=== PATIENT | female | born 1950 | race Caucasian/White ===

== ENCOUNTER 2019-11-04 10:04 | Outpatient (RCR) | payer MEDICARE, OTHER, SELFPAY ==
--- NOTE | 2019-11-04 11:08 | PTOPEVAL ---
Thank you for referring this patient to [facility]. Please review, sign, date and return this plan of care [facility]. I agree with and certify that the following plan of care is medically necessary. Referring Physician Date Admitting Provider: Attending Provider: Prashanth Soria MD Referring Provider: *PT Outpatient Evaluation Start: 11/04/19 10:13 Freq: Status: Active Protocol: Document 11/04/19 10:13 MICHELLE (Rec: 11/04/19 10:51 Jada [id number]) Therapy Assessment Status Assessment Status Assessment Status Evaluation Evaluation Information Problem Diagnosis L rotator cuff tendonitis Onset 10/27/19 Additional Evaluation Detail quick dash = Subjective Information patient reports she has been Query Text:As Reported By Patient/ having pain in the L shoulder Family for about 1 year. she reports she was hear in the middle of last year with issues with her R shoulder. she reports no injury to the L shoulder, but reports she is left handed. she reports she now feels like she favors the R arm due to increased strength and less pain in the R arm. she reports she has increased pain with reaching overhead, lifting dishes into cabinets, and different positions of the shoudler. Diagnostic Tests X-Rays For This Problem Yes Prior Level of Function Comments Additional Prior Level of Function patient reports gradual Comments increased pain in the L shoulder over the past year. she reports she would like to get back to all daily cleaning , self care, hygeine, and functional use of the L UE. Pain Assessment Timing of Pain Assessment Timing of Pain Assessment Assessment Pain Scale Pain Scale Used Numeric (1 - 10) Self Report Pain Assessment Left Shoulder(s) Reported Pain Level 1 Pain Description Sharp Pain Frequency Chronic,Continuous Current Pain Intensity 1 Lowest Pain Intensity 1 Greatest Pain Intensity 5 Pain Aggravating Factors Changing Position,Lifting Pain Relief Interventions Used By Position Change Patient Other Alleviating Interventions patient had injection to the L
== END 2019-12-07 08:52 | disposition home or self-care (01) ==
LOC: CHSPT 10:04
PROVIDERS: Visit Provider Orthopaedic Surgery
DX: M75.92 Shoulder lesion, unspecified, left shoulder (principal)
CPT/HCPCS: 97014; 97110; 97161; G0283

== ENCOUNTER 2019-12-29 11:06 | Outpatient (CLI) | payer MEDICARE, OTHER, SELFPAY ==
--- NOTE | ~2019-12-29 | MR_ITS ---
EXAMINATION: MR shoulder LT wo con DATE: 12/29/2019 12:10 INDICATION: Left shoulder pain. TECHNIQUE: Magnetic resonance imaging (MRI) of the left shoulder was performed without intravenous co ntrast. Sequences included axial PD-weighted FS FSE, coronal oblique PD-weighted FS FSE and T2-weight ed FS FSE, and sagittal oblique T2-weighted FS FSE and T1-weighted FSE. COMPARISON: Left shoulder radiographs 10/27/2019 FINDINGS: Coracoacromial arch: The acromion undersurface is curved in morphology (type II). There is severe acromioclavicular joint osteoarthritis. There is moderate subacromial/subdeltoid bursitis. Rotator cuff: There is a full-thickness tear of anterior supraspinatus tendon measuring 12 mm anterior to posterior by 3.5 cm proximal to distal. There is severe infraspinatus tendinopathy with small interstitial tea r. Teres minor tendon is normal. There is severe tendinopathy of subscapularis tendon with articular sided partial-thickness tear. There is no asymmetric fatty atrophy of the rotator cuff muscle bellies . Biceps tendon and glenoid labrum: There is a complete tear of proximal biceps tendon. There is a degenerative tear of superior glenoid labrum at 12:00 (SLAP tear). Fluid: There is a moderate-sized glenohumeral joint effusion. Bones/cartilage: Humeral head cartilage is normal. Glenoid cartilage is normal. IMPRESSION: 1. Severe rotator cuff tendinopathy with full-thickness rotator cuff tear. 2. Complete tear of proximal biceps tendon. 3. Severe acromioclavicular joint osteoarthritis. 4. Moderate-sized glenohumeral joint effusion and moderate subacromial/subdeltoid bursitis. 5. SLAP tear. Reviewed, dictated and finalized at location A. IMPRESSION: 1. Severe rotator cuff tendinopathy with full-thickness rotator cuff tear. 2. Complete tear of proximal biceps tendon. 3. Severe acromioclavicular joint osteoarthritis. 4. Moderate-sized glenohumeral joint effusion and moderate subacromial/subdelto id bursitis. 5. SLAP tear.
== END 2019-12-29 11:07 | disposition home or self-care (01) ==
LOC: ANHIMG 11:11
PROVIDERS: Visit Provider Orthopaedic Surgery
DX: M19.012 Primary osteoarthritis, left shoulder (principal); M25.412 Effusion, left shoulder; S43.432A Superior glenoid labrum lesion of left shoulder, initial encounter; X58.XXXA Exposure to other specified factors, initial encounter
CPT/HCPCS: 73221

== ENCOUNTER 2020-09-11 09:35 | Outpatient (CLI) | payer MEDICARE, OTHER, SELFPAY ==
--- NOTE | 2020-09-11 09:36 | ECG_ITS ---
Measurements Intervals [place] Rate: 61 P: 39 AR: 189 QRS: 6 QRSD: 87 T: 30 QT: 390 QTc: 394 Interpretive Statements SINUS RHYTHM BORDERLINE R WAVE PROGRESSION, ANTERIOR LEADS BASELINE ARTIFACT- I, II, III, AVR, AVL, AVF BORDERLINE ECG Electronically Signed On 09-11-2020 10:24:33 [employer] by David Clay D.O.
[2020-09-11 10:06] LABS: Anion Gap 5 mmol/L (8-16); Blood Urea Nitrogen 19 mg/dL (7-17); Calcium 9.3 mg/dL (8.4-10.2); Carbon Dioxide 32 mmol/L (22-30); Chloride 102 mmol/L (98-107); Estimated Glomerular Filt Rate > 60; Glucose 93 mg/dL (65-105); Potassium 4.4 mmol/L (3.4-5.0); Sodium 139 mmol/L (137-145)
== END 2020-09-11 09:36 | disposition home or self-care (01) ==
LOC: ANHSURGERY 09:36
PROVIDERS: Anesthesiology; Visit Provider Orthopaedic Surgery
DX: Z01.818 Encounter for other preprocedural examination (principal); M75.102 Unspecified rotator cuff tear or rupture of left shoulder, not specified as traumatic; E11.9 Type 2 diabetes mellitus without complications; I10 Essential (primary) hypertension
CPT/HCPCS: 36415; 80048; 93005

== ENCOUNTER 2020-09-15 00:37 | Outpatient (CLI) | payer MEDICARE, OTHER, SELFPAY ==
[2020-09-15 21:25] LABS: SARS-CoV-2 RNA PCR Negative
== END 2020-09-15 00:38 | disposition home or self-care (01) ==
LOC: ANHCOVIDDT 00:38
PROVIDERS: Visit Provider Orthopaedic Surgery
DX: Z01.818 Encounter for other preprocedural examination (principal); Z20.828 Contact with and (suspected) exposure to other viral communicable diseases
CPT/HCPCS: 87635; C9803; U0003

== ENCOUNTER 2020-09-18 00:49 | Day surgery (SDC) | payer MEDICARE, OTHER, SELFPAY ==
[2020-09-04 12:46] VITALS: BMI 29.2
[2020-09-18] VITALS (8 sets, daily range): BP systolic 123–150; BP diastolic 62–85; PULSE 66–82; RESP 10–20; TEMP 36.4; O2SAT 92–99
[2020-09-18] MEDS: ACETAMINOPHEN 500 MG TABLET 1000 MG PO (10:25)
--- NOTE | 2020-09-18 10:55 | WPDANESEPPF ---
Anes - Initial Pre Proc Eval Procedure: Operation Date: 09/18/20 12:00 Proposed Procedures p Left Rotator Cuff Repair, Acromioplasty, Distal Clavicle Excision - Prashanth Soria MD Date/Time: 09/18/20 10:55 Surgeon: Prashanth Soria MD Pre Op Diagnosis: left rotator cuff tear, AC arthritis Patient Data Age: 69 Gender: F Height: 5 ft 6 in Weight: 82.46 kg Last Vital Signs Temp 36.4 C 09/18/20 10:24 Pulse 66 09/18/20 10:24 Resp 20 09/18/20 10:24 BP 123/62 09/18/20 10:24 Pulse Ox 98 09/18/20 10:24 Allergies Allergy/AdvReac Type Severity Reaction Status Date / Time BEE STINGS Allergy Severe ANAPHYLAXIS Uncoded 09/18/20 10:26 Home Medications Medication Instructions Recorded Confirmed Type bupropion HCl 200 mg tablet,12 hr 200 mg PO BID 10/27/19 09/18/20 History sustained-release calcium carbonate 600 mg calcium 600 mg PO DAILY 10/27/19 09/18/20 History (1,500 mg) tablet citalopram 20 mg tablet 10 mg PO QAM 10/27/19 09/18/20 History fexofenadine 60 mg tablet 60 mg PO Q12H PRN 10/27/19 09/18/20 History fluticasone propionate 50 1 spray NASAL DAILY PRN 10/27/19 09/18/20 History mcg/actuation nasal spray,suspension lisinopril 10 mg tablet 10 mg PO QAM 10/27/19 09/18/20 History metformin 500 mg tablet 500 mg PO HS tablet 10/27/19 09/18/20 History atorvastatin 5 mg PO QAM 09/04/20 09/18/20 History jrmuwdoiezxd-Ca-iish-minerals 1 tablet PO DAILY 09/04/20 09/18/20 History [Multiple Vitamin, Womens] triamcinolone acetonide 1 applic TOPICAL TID PRN 09/04/20 09/18/20 History Patient hx anesthesia problems: other (slow to awaken) Family hx anesthesia problems: none PMFSH Past Medical History Medical History BMI 31.0-31.9,adult Diabetes Hyperlipidemia Hypertension Restless leg syndrome Surgical History Surgical History History of cataract surgery 2020 History of partial knee replacement (~2014) bilateral S/P right rotator cuff repair Social History Social History Smoking status: Never smoker Alcohol intake: current Substance use: never Living arrangements: with family Additional living arrangements comments: [place] Gender identity (if verbalized by the patient): Female Spiritual care concerns: No Anes - Eval Final PreProcedure Day of Procedure 09/18/20 10:55 Patient weight: overweight Heart: regular rate and rhythm Lungs: clear to auscultation Airway: Mallampati scale class II Neurological: alert and oriented Last oral intake: >/= 8 hours ASA classification: III Emergent: no Anesthetic plan: proceed Anesthesia type and monitoring: general ETT and standard monitoring Informed Consent: The patient's anesthetic plan and its attendant risks and benefits were discussed with the patient/family/POA. Questions were solicited and answers provided to the satisfaction of the patient/family/POA.
[2020-09-18] MEDS: LACTATED RINGERS 1,000 ML 30 ML IV CONT ×2 (11:00→12:58)
[2020-09-18] MEDS: KETOROLAC 15 MG/ML VIAL (*BKC) IV PUSH (11:07)
[2020-09-18 11:13] LABS: Glucose Point of Care 84 (65-105)
--- NOTE | 2020-09-18 11:13 | WPDHPUPDATE1 ---
History and Physical Update Update Date/Time: 09/18/20 11:13 History and Physical has been reviewed, including an updated exam of the patient. There are NO changes in the patient's condition. Risks, benefits, and alternatives have been discussed and questions answered. Patient agrees to proceed with procedure.
[2020-09-18] MEDS: ceFAZolin 2 GM/D5W 50 ML 2 GM/50 ML BAG IVPB (11:32)
--- NOTE | 2020-09-18 11:32 | WPDANESPNB ---
Anes - Peripheral Nerve Block Date/Time: 09/18/20 11:32 I have discussed with the patient/family/POA the placement of a peripheral nerve block for post-operative pain management, including associated risks, benefits, complications, and side effects. Alternative methods of post-operative analgesia were detailed. Questions were solicited and answers provided to the satisfaction of the patient/family/POA. Time-Out: A pre-procedural Time-Out was completed immediately before starting the procedure and confirmed: Patient Identification, Site, Procedure, Patient Position and the Availability of Requisite Equipment. Clinical Indications: Acute post-operative pain management requested by the operative surgeon. Nerve Block Insertion Note Anes-nerve block: interscalene left Patient position: other (sitting) Skin prep: chlorhexidine Needle: 22 gauge, stimulating, insulated echogenic needle. Needle length: 50 mm Technique: nerve stimulation lost at (mA) (0.3) Technique comment: mid 2mg fent 100mcg Injectate: bupivacaine 0.5% with epi 5 mcg/ml (30ml no epi) and dexamethasone (mg) (4) Procedure start time:: 112 Procedure end time:: 1127
--- NOTE | 2020-09-18 12:55 | PM.PROC ---
Procedure Note - Detailed Date of procedure: 09/18/20 Pre-op diagnosis: left rotator cuff tear, AC arthritis Post-op diagnosis: same Procedure performed: Left shoulder open anterior acromioplasty, distal clavicle excision and repair the rotator cuff Description of procedure: Patient was identified and proper site identified. In the preop holding area the anesthesia team performed a left upper extremity block. She was then taken to the operating room and transferred to the or table taking care to pad the torso and extremities. After general anesthetic induction and intubation, she was put in a semi beach chair position in the usual manner for a left shoulder procedure. Her head was secured taking care to neither rotate nor extend the head and neck. The left upper extremity was prepped and draped free in usual sterile fashion. The subcutaneous tissue in the area of the incision was injected with 10 cc of 0.25% Marcaine and epinephrine solution. An oblique anterior incision was made extending from the AC joint distally in line with the fibers of the deltoid. Subcutaneous tissue was sharply dissected down to the deltoid fascia. The deltoid was dissected off the anterior portion of the acromion in the distal end of the clavicle. A 2 cm split was made at the junction between the anterior and middle thirds of the deltoid. Using the microsagittal saw the last 8 mm of clavicle removed. The saw was also used to perform the acromioplasty and then the undersurface of the acromion was rasped smooth. Adherent bursa was dissected off the rotator cuff. The supraspinatus was avulsed off of the anterior portion of the greater tuberosity and retracted. There is also some delamination of the infraspinatus tendon. Biceps tendon was not in the bicipital groove. Subscapularis attachment was inspected noted be intact as was the teres minor. The greater tuberosity was prepared for the repair and the supraspinatus was repaired back down to the greater tuberosity with 2. Ethibond suture Passer bone and also 2. Ethibond was used in a [id number] fashion. This gave a pierce repair which was stable as the shoulder was taken through range of motion. The wound was irrigated with sterile NaCl solution. The deltoid was repaired back to the acromion with 2. Ethibond suture passed through bone and the remainder of the deltoid repair carried out with 2. Vicryl. Subcutaneous tissue was reapproximated with 2. Strata fix and then tissue adhesive used for the skin. Sterile dressing was applied. There were no known intraoperative complications, and perioperative antibiotics were administered. Anesthesia: GETA Surgeon: Prashanth Soria MD Estimated blood loss (mL): 30 Drains: No Packing: No Pathology: none sent Complications: No immediate complications Condition: stable Disposition: PACU
== END 2020-09-18 14:50 | disposition home or self-care (01) ==
PROVIDERS: Visit Provider Orthopaedic Surgery
PROC: (CPT 23420; principal; 2020-09-18 12:00)
DX: M75.102 Unspecified rotator cuff tear or rupture of left shoulder, not specified as traumatic (principal); M19.012 Primary osteoarthritis, left shoulder; G89.18 Other acute postprocedural pain; I10 Essential (primary) hypertension; E78.5 Hyperlipidemia, unspecified; E11.9 Type 2 diabetes mellitus without complications; G25.81 Restless legs syndrome; Z79.84 Long term (current) use of oral hypoglycemic drugs
CPT/HCPCS: 23420; 23120; 64415; A4565; A9270; J0690; J1100; J1885; J2250; J2405; J2704; J3010; J7120

== ENCOUNTER 2020-09-20 11:11 | Outpatient (RCR) | payer MEDICARE, OTHER, SELFPAY ==
--- NOTE | 2020-09-27 21:06 | PTOPEVAL ---
Thank you for referring Neftali Bee to [facility].? The patient is scheduled to be seen for therapy? ____x/week for ___ weeks. Please review, sign, date and return this plan of care SHAMEKA. I agree with and certify that the following plan of care is medically necessary. Referring Physician Date Admitting Provider: Attending Provider: Prashanth Soria MD Referring Provider: *PT Outpatient Evaluation Start: 09/20/20 11:14 Freq: Status: Active Protocol: Document 09/20/20 11:00 Jada (Rec: 09/27/20 21:05 [facility] [id number]) Therapy Assessment Status Assessment Status Assessment Status Evaluation Outpatient Past Medical History Neurological History Hx Other Neurological Disorders Yes: MILD RESTLESS LEG SYNDROME Cardiovascular History Hx Hypercholesterolemia Yes Hx Hypertension Yes Respiratory History Hx Respiratory Disorders No Significant History Gastrointestinal History Hx Gastrointestinal Disorders No Significant History Genitourinary History Hx Genitourinary Disorders No Significant History Musculoskeletal History Hx Arthritis Yes Hx Back Pain Yes: SCIATICA- RT LEG PAIN. INJECTED 2018 Hx Joint Replacement Yes: PARTIAL KNEE REPLACEMENTS -MARCH AND JUL 2015 Hx Other Musculoskeletal Disorders Yes: LT ROTATOR CUFF TEAR , AC ARTHRITIS. Hematological History Hx Hematological Disorders No Significant History Endocrine History Hx Diabetes Yes HEENT History Hx Cataracts Yes: BILAT IMPLANTS Integumentary History Hx Shingles Yes: ~2007 Reproductive History Hx Post Menopausal Yes Psychosocial History Hx Depression Yes Pain History History of Any Previous or Ongoing No Significant History Instance of Pain Anesthesia History Hx Anesthesia Reactions No Significant History Other History Hx Implanted Device Yes: BILAT KNEES Evaluation Information Problem Diagnosis s/p L RTC repair Onset 09/18/20 Additional Evaluation Detail quick dash = 81% functionally declined Subjective Information patient reports due to pain, Query Text:As Reported By Patient/ weakness, and other functional Family deficits with the L shoulder, she had a L RTC repair on . she reports she was supposed to have a small arthroscopic repair. however, upon entering surgery, her surgeon found a large
[2020-10-18 11:05] VITALS: BP_SYST 110
--- NOTE | 2020-10-18 12:03 | PTOPEVAL ---
Thank you for referring Neftali Bee to [facility].? The patient is scheduled to be seen for therapy? ____x/week for ___ weeks. Please review, sign, date and return this plan of care SHAMEKA. I agree with and certify that the following plan of care is medically necessary. Referring Physician Date Admitting Provider: Attending Provider: Prashanth Soria MD Referring Provider: *PT Outpatient Evaluation Start: 09/20/20 11:14 Freq: Status: Active Protocol: Document 10/18/20 11:05 Jada (Rec: 10/18/20 11:58 [facility] [id number]) Therapy Assessment Status Assessment Status Assessment Status Re-evaluation Outpatient Past Medical History Neurological History Hx Other Neurological Disorders Yes: MILD RESTLESS LEG SYNDROME Cardiovascular History Hx Hypercholesterolemia Yes Hx Hypertension Yes Respiratory History Hx Respiratory Disorders No Significant History Gastrointestinal History Hx Gastrointestinal Disorders No Significant History Genitourinary History Hx Genitourinary Disorders No Significant History Musculoskeletal History Hx Arthritis Yes Hx Back Pain Yes: SCIATICA- RT LEG PAIN. INJECTED 2018 Hx Joint Replacement Yes: PARTIAL KNEE REPLACEMENTS -MARCH AND JUL 2015 Hx Other Musculoskeletal Disorders Yes: LT ROTATOR CUFF TEAR , AC ARTHRITIS. Hematological History Hx Hematological Disorders No Significant History Endocrine History Hx Diabetes Yes HEENT History Hx Cataracts Yes: BILAT IMPLANTS Integumentary History Hx Shingles Yes: ~2007 Reproductive History Hx Post Menopausal Yes Psychosocial History Hx Depression Yes Pain History History of Any Previous or Ongoing No Significant History Instance of Pain Anesthesia History Hx Anesthesia Reactions No Significant History Other History Hx Implanted Device Yes: BILAT KNEES Evaluation Information Problem Diagnosis s/p L RTC repair Pain Assessment Timing of Pain Assessment Timing of Pain Assessment Assessment Pain Scale Pain Scale Used Numeric (1 - 10) Self Report Pain Assessment Left Shoulder(s) Reported Pain Level 1 Greatest Pain Intensity 4 Pain Score Pain Score 1: Self Report Interventions Used Interventions Used By Clinicians Electrical Stimulation, Exercise,Ice Upper Extremity Range of Motion Scapular/ Shoulder Range of Motion Left Shoulder Flexion - Active 135 Shoulder Flexion - Passive 150 Shoulder Abduction - Passive 110 Shoulder Medial Rotation - Active
--- NOTE | 2020-11-16 12:01 | PTOPEVAL ---
Thank you for referring Neftali Bee to [facility].? The patient is scheduled to be seen for therapy? ____x/week for ___ weeks. Please review, sign, date and return this plan of care SHAMEKA. I agree with and certify that the following plan of care is medically necessary. Referring Physician Date Admitting Provider: Attending Provider: Prashanth Soria MD Referring Provider: *PT Outpatient Evaluation Start: 09/20/20 11:14 Freq: Status: Active Protocol: Document 11/16/20 11:00 [facility] (Rec: 11/16/20 12:00 [facility] [id number]) Therapy Assessment Status Assessment Status Assessment Status Re-evaluation Outpatient Past Medical History Neurological History Hx Other Neurological Disorders Yes: MILD RESTLESS LEG SYNDROME Cardiovascular History Hx Hypercholesterolemia Yes Hx Hypertension Yes Respiratory History Hx Respiratory Disorders No Significant History Gastrointestinal History Hx Gastrointestinal Disorders No Significant History Genitourinary History Hx Genitourinary Disorders No Significant History Musculoskeletal History Hx Arthritis Yes Hx Back Pain Yes: SCIATICA- RT LEG PAIN. INJECTED 2018 Hx Joint Replacement Yes: PARTIAL KNEE REPLACEMENTS -MARCH AND JUL 2015 Hx Other Musculoskeletal Disorders Yes: LT ROTATOR CUFF TEAR , AC ARTHRITIS. Hematological History Hx Hematological Disorders No Significant History Endocrine History Hx Diabetes Yes HEENT History Hx Cataracts Yes: BILAT IMPLANTS Integumentary History Hx Shingles Yes: ~2007 Reproductive History Hx Post Menopausal Yes Psychosocial History Hx Depression Yes Pain History History of Any Previous or Ongoing No Significant History Instance of Pain Anesthesia History Hx Anesthesia Reactions No Significant History Other History Hx Implanted Device Yes: BILAT KNEES Evaluation Information Problem Diagnosis s/p L RTC repair Onset 09/18/20 Additional Evaluation Detail quick dash = 31% functionally declined Subjective Information patient reprots she feels Query Text:As Reported By Patient/ good this date. she reports Family at times she will still get twinges of increased pain in the L shoulder. she reports she has difficulty sleeping at night, brushing her teeth, cleaning house, and any other prolonger UE ac
== END 2020-12-11 08:32 | disposition home or self-care (01) ==
LOC: CHSPT 11:11
PROVIDERS: Visit Provider Orthopaedic Surgery
DX: Z98.890 Other specified postprocedural states (principal); M75.122 Complete rotator cuff tear or rupture of left shoulder, not specified as traumatic
CPT/HCPCS: 97014; 97110; 97161; 97530; G0283

== ENCOUNTER 2021-12-06 09:58 | Outpatient (RCR) | payer MEDICARE, SELFPAY ==
--- NOTE | 2021-12-06 11:15 | PTOPEVAL ---
Thank you for referring Neftali Bee to [facility] [place][Note 2[facility]? The patient is scheduled to be seen for therapy? __2__x/week for 12 visits. Please review, sign, date and return this plan of care SHAMEKA. I agree with and certify that the following plan of care is medically necessary. Referring Physician Date Admitting Provider: Attending Provider: UNKNOWN,DOCTOR Referring Provider: *PT Outpatient Evaluation Start: 12/06/21 10:04 Freq: Status: Active Protocol: Document 12/06/21 10:14 NARCISA (Rec: 12/06/21 11:14 NARCISA [id number]) Therapy Assessment Status Assessment Status Assessment Status Evaluation Outpatient Past Medical History Neurological History Hx Other Neurological Disorders Yes: MILD RESTLESS LEG SYNDROME Cardiovascular History Hx Hypercholesterolemia Yes Hx Hypertension Yes Respiratory History Hx Respiratory Disorders No Significant History Gastrointestinal History Hx Gastrointestinal Disorders No Significant History Genitourinary History Hx Genitourinary Disorders No Significant History Musculoskeletal History Hx Arthritis Yes Hx Back Pain Yes: SCIATICA- RT LEG PAIN. INJECTED 2018 Hx Joint Replacement Yes: PARTIAL KNEE REPLACEMENTS -MARCH AND JUL 2015 Hx Other Musculoskeletal Disorders Yes: LT ROTATOR CUFF TEAR , AC ARTHRITIS. Hematological History Hx Hematological Disorders No Significant History Endocrine History Hx Diabetes Yes HEENT History Hx Cataracts Yes: BILAT IMPLANTS Integumentary History Hx Shingles Yes: ~2007 Reproductive History Hx Post Menopausal Yes Psychosocial History Hx Depression Yes Pain History History of Any Previous or Ongoing No Significant History Instance of Pain Anesthesia History Hx Anesthesia Reactions No Significant History Other History Hx Implanted Device Yes: BILAT KNEES Evaluation Information Problem Diagnosis right shoulder bursitis/ impingement Onset 07/20/21 Subjective Information Pt. reports that she developed Query Text:As Reported By Patient/ right shoulder pain in Family July. She reports no incident just gradual onset. She underwent xray which revealed bone spurring. She describes her pain in the top and front of the arm and pain along the bicep. She reports that her p
--- NOTE | 2021-12-06 11:44 | PTOPEVAL ---
Thank you for referring Neftali Bee to [facility] [place].? The patient is scheduled to be seen for therapy? _2___x/week for 12 visits. Please review, sign, date and return this plan of care SHAMEKA. I agree with and certify that the following plan of care is medically necessary. Referring Physician Date Admitting Provider: Attending Provider: Prashanth Soria MD Referring Provider: *PT Outpatient Evaluation Start: 12/06/21 10:04 Freq: Status: Active Protocol: Document 12/06/21 10:14 NARCISA (Rec: 12/06/21 11:14 NARCISA [email or web address]) Therapy Assessment Status Assessment Status Assessment Status Evaluation Outpatient Past Medical History Neurological History Hx Other Neurological Disorders Yes: MILD RESTLESS LEG SYNDROME Cardiovascular History Hx Hypercholesterolemia Yes Hx Hypertension Yes Respiratory History Hx Respiratory Disorders No Significant History Gastrointestinal History Hx Gastrointestinal Disorders No Significant History Genitourinary History Hx Genitourinary Disorders No Significant History Musculoskeletal History Hx Arthritis Yes Hx Back Pain Yes: SCIATICA- RT LEG PAIN. INJECTED 2018 Hx Joint Replacement Yes: PARTIAL KNEE REPLACEMENTS -MARCH AND JUL 2015 Hx Other Musculoskeletal Disorders Yes: LT ROTATOR CUFF TEAR , AC ARTHRITIS. Hematological History Hx Hematological Disorders No Significant History Endocrine History Hx Diabetes Yes HEENT History Hx Cataracts Yes: BILAT IMPLANTS Integumentary History Hx Shingles Yes: ~2007 Reproductive History Hx Post Menopausal Yes Psychosocial History Hx Depression Yes Pain History History of Any Previous or Ongoing No Significant History Instance of Pain Anesthesia History Hx Anesthesia Reactions No Significant History Other History Hx Implanted Device Yes: BILAT KNEES Evaluation Information Problem Diagnosis right shoulder bursitis/ impingement Onset 07/20/21 Subjective Information Pt. reports that she developed Query Text:As Reported By Patient/ right shoulder pain in Family July. She reports no incident just gradual onset. She underwent xray which revealed bone spurring. She describes her pain in the top and front of the arm and pain along the bicep. She reports that her
== END 2022-01-15 23:59 | disposition home or self-care (01) ==
LOC: CHSPT 09:58
PROVIDERS: Visit Provider Orthopaedic Surgery
DX: M25.511 Pain in right shoulder (principal); M75.41 Impingement syndrome of right shoulder
CPT/HCPCS: 97014; 97110; 97140; 97161; G0283